=== PATIENT | female | born 1975 | race Caucasian/White ===

== ENCOUNTER 2021-07-25 23:20 | Emergency (ER) | payer OTHER ==
[2021-07-26] MEDS ORDERED: LODINE CAP 300300 MG PO (01:44)
== END 2021-07-26 01:03 | disposition home or self-care (01) ==
LOC: ER1 23:20
DX: M25.561 Pain in right knee (principal); M25.461 Effusion, right knee; J45.909 Unspecified asthma, uncomplicated
CPT/HCPCS: 73564; 99283

== ENCOUNTER 2021-07-31 13:16 | Emergency (ER) | payer OTHER ==
[~2021-07-31 13:16] MED LIST: LODINE CAP 300300 MG PO
[2021-07-31 21:25] LABS: HEMOGLOBIN 14.1 gm/dl (12.3-15.3); RED BLOOD COUNT 4.97 M/UL (4.00-5.10); WHITE BLOOD COUNT 13.1 K/UL (4.5-11.0)
[2021-07-31 21:52] LABS: BUN/CREATININE RATIO 29 (0-10)
[2021-08-01 01:46] LABS: ADENOVIRUS F 40/41 Not Detected (Negative); ASTROVIRUS Not Detected (Negative); CAMPYLOBACTER Not Detected (Negative); CLOSTRIDIUM DIFFICILE TOX A/B Not Detected (Negative); CRYPTOSPORIDIUM Not Detected (Negative); E.COLI 0157 Not Detected (Negative); ENTAMOEBA HISTOLYTICA Not Detected (Negative); ENTEROAGGREGATIVE E.COLI (EAEC Not Detected (Negative); ENTEROPATHOGENIC E.COLI (EPEC) Not Detected (Negative); ENTEROTOXIGENIC E.COLI (ETEC) Not Detected (Negative); GIARDIA LAMBLIA Not Detected (Negative); NOROVIRUS GI/GII Not Detected (Negative); PLESIOMONAS SHIGELLOIDES Not Detected (Negative); ROTOVIRUS A Not Detected (Negative); SALMONELLA Not Detected (Negative); SAPOVIRUS Not Detected (Negative); SHIG/ENTEROINVAS.ECOLI (EIEC) Not Detected (Negative); SHIGA-LIK TOX.PRO.E.COLI (STEC Not Detected (Negative); VIBRIO Not Detected (Negative); VIBRIO CHOLERAE Not Detected (Negative); YERSINIA ENTEROCOLITICA Not Detected (Negative)
== END 2021-07-31 23:00 | disposition home or self-care (01) ==
LOC: ER1 13:16
PROVIDERS: Family Medicine; Physician Assistant
DX: R19.7 Diarrhea, unspecified (principal); Z88.1 Allergy status to other antibiotic agents
CPT/HCPCS: 80053; 85025; 87507; 99284

== ENCOUNTER 2021-08-25 23:17 | Emergency (ER) | payer OTHER ==
[2021-08-26] MEDS ORDERED: LODINE CAP 300300 MG PO (01:45)
== END 2021-08-26 01:50 | disposition home or self-care (01) ==
LOC: ER1 23:17
DX: S63.8X2A Sprain of other part of left wrist and hand, initial encounter (principal); S60.012A Contusion of left thumb without damage to nail, initial encounter; X58.XXXA Exposure to other specified factors, initial encounter; Y93.9 Activity, unspecified; Y99.0 Civilian activity done for income or pay
CPT/HCPCS: 29130; 73110; 73130; 99283

== ENCOUNTER → 2021-12-28 | Outpatient (CLI) | payer OTHER ==
[~2021-12-28] MED LIST changes: +ASPIRIN EC81 MG PO; +B-121000 MCG PO; +BACLOFEN20 MG PO; +CYCLOBENZAPRINE10 MG PO; +FLONASE 0.05% N16 GM; +GABAPENTIN300 MG PO; +IBUPROFEN800 MG PO; +LASIX TAB 20 MG20 MG PO; +LASIX40 MG PO; +LIPITOR40 MG PO; +LISINOPRIL5 MG PO; +MECLIZINE HCL25 MG PO; +NITROGLYCERIN0.4 MG SL; +PHENERGAN 25 MG25 M1 PO; +PROAIR DIGIHAL90 MCG INH; +PROZAC20 MG PO; +RIZATRIPTAN10 MG PO; +ROBAXIN 750 MG750 MG PO; +TOPAMAX25 MG PO; +ZYRTEC10 M3 PO
[2021-12-28 10:43] LABS: BUN/CREATININE RATIO 25 (0-10)
== END ==
LOC: LAB 09:45
PROVIDERS: Internal Medicine
DX: I42.9 Cardiomyopathy, unspecified (principal)
CPT/HCPCS: 36415; 80048

== ENCOUNTER → 2022-03-29 | Outpatient (CLI) | payer OTHER | LOC: HEART 5 07:58 | DX: I42.9 Cardiomyopathy, unspecified (principal); R07.81 Pleurodynia | CPT/HCPCS: 93306 ==